=== PATIENT | male | born 1960 | race Caucasian/White ===

== ENCOUNTER 2017-04-04 16:13 | Emergency (ER) | payer OTHER ==
[2017-04-04 16:24] VITALS: BP 137/80; PULSE 72; TEMP 98.5; BMI 26.9
[2017-04-04] MEDS ORDERED: NAPROXEN 500 MG TABLET (FP) PO ONE (17:17)
[2017-04-04] MEDS ORDERED: NAPROXEN 500 MG TABLET (FP) ONE (17:20)
--- NOTE | 2017-04-04 17:22 | PDOC ---
History of Present Illness - General Chief Complaint: Pain Stated Complaint: SHOULDER PAIN Time Seen by Provider: 04/04/17 16:47 History Source: Patient Exam Limitations: No Limitations - History of Present Illness Initial Comments: 04/04/17 17:24 My Chief complaint: pain and swelling left upper arm shoulder area History of present illness: Patient is a 57-year-old male with a history of hypertension and hyperlipidemia or today complaining of pain to the left lateral upper arm after being hit by a piece of machinery that had a metal clip on it that broke off and hit him in this area. Patient also has slight swelling and bruising of this area noted. Patient denies any numbness of his left arm or any decreased range of motion of his left shoulder or elbow or wrist or fingers. His any numbness of left arm. 04/04/17 17:25 Occurred: reports: this morning Severity: reports: moderate (left shoulder/bicep) Pain Location: reports: upper extremity (left upper arm/shoulder laterally ) Method of Injury: Yes: direct blow (by a metal object at work today hit him ) Modifying Factors: improves with: cold therapy Loss of Consciousness: no loss of consciousness Associated Symptoms (Fall): denies symptoms Past History - Past Medical History Allergies/Adverse Reactions: Allergies Allergy/AdvReac Type Severity Reaction Status Date / Time No Known Allergies Allergy Verified 04/04/17 16:21 Home Medications: Ambulatory Orders Naproxen [Naprosyn -] 500 mg PO BID PRN #14 tablet 04/04/17 HTN: Yes Hypercholesterolemia: Yes - Suicide/Smoking/Psychosocial Hx Smoking History: Never smoked Review of Systems - Review of Systems Able to Perform ROS?: Yes Constitutional: No: Symptoms Reported HEENTM: No: Symptoms Reported Respiratory: No: Symptoms reported Cardiac (ROS): No: Symptoms Reported ABD/GI: No: Symptoms Reported : No: Symptoms Reported Musculoskeletal: Yes: Joint Pain (left lateral upper arm/shoulder), Muscle Pain (left lateral upper arm/shoulder) Integumentary: Yes: Bruising (left lateral upper arm/shoulder) Neurological: No: Symptoms reported *Physical Exam - Vital Signs Last Vital Signs Temp Pulse Resp BP Pulse Ox 98.5 F 72 19 137/80 97 04/04/17 16:21 04/04/17 16:21 04/04/17 16:21 04/04/17 16:21 04/04/17 16:21 - Physical Exam General Appearance: Yes: Appropriately Dressed Neck: negative: Tender, Lymphadenopathy (R), Lymphadenopathy (L), Rigidity, Tender lateral, Tender midline Respiratory/Chest: positive: Lungs Clear, Normal Breath Sounds. negative: Chest Tender, Respiratory Distress Cardiovascular: positive: Regular Rhythm, Regular Rate, S1, S2 Comments:: 04/04/17 17:21 radial pulse left 4 + Extremity: positive: Normal Capillary Refill, Normal Range of Motion (left shoulder, elbow, wrist and all digits left hand ), Tender (left lateral proximal arm, lateral shoulder), Swelling (left lateral shoulder/proximal lateral arm ). negative: Normal Inspection Integumentary: positive: Ecchymosis (left lateral proximal arm/lateral shoulder ) Neurologic: positive: Normal Response (left arm), Motor Strength 5/5 (left arm upper and forearm ), Responsive. negative: Respond to painful stimul, Numbness , Sensory Deficit (left arm ) Medical Decision Making - Medical Decision Making 04/04/17 17:24 04/04/17 17:30 Patient is a 57-year-old male with a history of hypertension and hyperlipidemia or today complaining of pain to the left lateral upper arm after being hit by a piece of machinery that had a metal clip on it that broke off and hit him in this area. Patient also has slight swelling and bruising of this area noted. Patient denies any numbness of his left arm or any decreased range of motion of his left shoulder or elbow or wrist or fingers. His any numbness of left arm. Left proximal arm and shoulder contusion Rule out bony injury to left shoulder/upper arm PLAN: naprosyn 500 mg po now than bid prn pain # 14 apply to area every hour or 2 for 15 minutes each time xray left shoulder no acute fracture noted Follow-up with orthopedist if pain continues and area 04/04/17 17:51 *DC/Admit/Observation/Transfer Diagnosis at time of Disposition: Contusion, arm, upper Qualifiers: Encounter type: initial encounter Laterality: left Qualified Code(s): S40.022A - Contusion of left upper arm, initial encounter; S40.022A - Contusion of left upper arm, initial encounter - Discharge Dispostion Disposition: HOME Condition at time of disposition: Stable - Referrals Referrals: Manuel Zapata MD [Primary Care Provider] - Angel Cano MD [Staff Physician] - - Patient Instructions Additional Instructions: Apply ice to left shoulder upper arm area every hour for 15 minutes while awake today and tomorrow Follow up with orthopedist if pain continues and area involved Return to emergency room if pain worsens or any numbness of arm or any other symptoms develop Avoid any strenuous activities Patient voiced understanding of discharge instructions and all questions were answered - Post Discharge Activity Forms/Work/School Notes: Back to Work
== END 2017-04-04 18:07 | disposition home or self-care (01) ==
LOC: JERFT 16:13
DX: S40.022A Contusion of left upper arm, initial encounter (principal); W31.89XA Contact with other specified machinery, initial encounter; Y93.89 Activity, other specified; Y92.69 Other specified industrial and construction area as the place of occurrence of the external cause; Y99.0 Civilian activity done for income or pay; I10 Essential (primary) hypertension; E78.00 Pure hypercholesterolemia, unspecified
CPT/HCPCS: 73030-TC-LT; 99281-25